=== PATIENT | male | born 1975 | race Two or more races ===

== ENCOUNTER 2021-01-25 02:12 | Emergency (ER) | payer MEDICAID ==
[~2021-01-25] VITALS: Ht 185.4 cm; Wt 98.0 kg
[2021-01-25 02:13] VITALS: BP 128/89
== END 2021-01-25 02:55 | disposition home or self-care (01) ==
LOC: ED 02:35
DX: F10.129 Alcohol abuse with intoxication, unspecified (principal); Y90.0 Blood alcohol level of less than 20 mg/100 ml
CPT/HCPCS: 99283